=== PATIENT | male | born 1980 | race Caucasian/White ===

== ENCOUNTER 2016-11-27 19:52 | Emergency (ER) | payer OTHER ==
[~2016-11-27 19:52] MED LIST: ALL220TA PO; CYCL5TAB PO; PENI500T PO
[2016-11-27 19:55] VITALS: BP 155/108; PULSE 108; RESP 20; TEMP 99.2
[2016-11-27] MEDS ORDERED: IBUP400T20 PO (20:11)
[2016-11-27] MEDS ORDERED: TYLETAB34 PO (20:11)
[2016-11-27] MEDS ORDERED: METH750T PO (20:11)
[2016-11-27] MEDS ORDERED: ORPHENADRINE INJ 60 MG/2 ML AMP IM ONE (20:30)
[2016-11-27] MEDS ORDERED: methylPREDNISolone SOD SUCC 125 MG/2 ML VIAL IM ONE (20:30)
[2016-11-27] MEDS ORDERED: KETOROLAC TROMETHAMINE 60 MG/2 ML (IM) VIAL IM ONE (20:30)
--- NOTE | 2016-11-27 20:31 | PD ---
HPI Chief Complaint: Back/ Neck Pain or Injury Time Seen by Provider: 20:25 Travel History International Travel<30 days: No Contact w/Intl Traveler<30days: No Traveled to known affect area: No History of Present Illness HPI 36-year-old male presents to emergency department with a one-day history of low back pain that started after he bent down to pick some up. States that he does have some chronic back pain however it is controlled with ibuprofen and occasional muscle relaxers. States that he tried to take ibuprofen, use heat and ice, and massage therapy however, none of this has helped. States this pain is located in the lower left lumbar and sacroiliac region, moderate, achy with occasional sharp pain that exacerbates with movement. Denies radiation of pain. Denies fever, chills, loss of bowel or bladder function, history IV drug use, personal history of cancer, weakness. He follows his primary care physician, Dr. Kimble, regularly. PFSH Past Medical History Medical History: Denies Significant Hx Cerebrovascular Accident: No Diabetes: No Myocardial Infarction: No Tetanus Vaccination: > 5 Years Influenza Vaccination: No Past Surgical History Surgical History: No Previous Surgery Social History Alcohol Use: Yes (OCCASIONAL) Tobacco Use: Yes (2 CIGS DAILY) Substance Use: No Allergies-Medications (Allergen,Severity, Reaction): Coded Allergies: Sulfa (Sulfonamide Antibiotics) (Verified Allergy, Mild, 11/27/16) Reported Meds & Prescriptions Reported Meds & Active Scripts Active Medrol Dosepak (Methylprednisolone) 4 Mg Dspk 4 Mg PO DIRECTED Per Pharmacist direction Reported Tylenol-Codeine #3 (Acetaminophen-Codeine) 300-30 mg Tab 1 Tab PO Q4H PRN Methocarbamol 750 Mg Tab 750 Mg PO Q4H Ibuprofen 400 Mg Tab 400 Mg PO Q6H PRN Review of Systems Except as stated in HPI: all other systems reviewed are Neg Physical Exam Narrative GENERAL: Well-developed well-nourished SKIN: Focused skin assessment warm/dry. No areas of ecchymosis HEAD: Atraumatic. Normocephalic. NECK: Trachea midline. No JVD. CARDIOVASCULAR: Regular rate and rhythm. No murmur appreciated. RESPIRATORY: No accessory muscle use. Clear to auscultation. Breath sounds equal bilaterally. GASTROINTESTINAL: Abdomen soft, non-tender, nondistended. Hepatic and splenic margins not palpable. BACK: No CVA tenderness. No rash. No point tenderness on palpation of the spine. Mild tenderness to palpation of the lower left lumbar and sacroiliac region without step-off or crepitus. MUSCULOSKELETAL: No obvious deformities. No clubbing. No cyanosis. No edema. NEUROLOGICAL: Awake and alert. No obvious cranial nerve deficits. Motor grossly within normal limits. Normal speech. Grade 5 out of 5 strength lower extremities, neurovascularly intact PSYCHIATRIC: Appropriate mood and affect; insight and judgment normal. Data Data Last Documented VS Vital Signs Date Time Temp Pulse Resp B/P (MAP) Pulse Ox O2 Delivery O2 Flow Rate FiO2 11/27/16 19:55 99.2 108 20 155/108 (124) Orders Orders Ketorolac Inj (Toradol Inj) (11/27/16 20:30) Methylprednisolone So Succ Inj (Solumedr (11/27/16 20:30) Orphenadrine Inj (Norflex Inj) (11/27/16 20:30) Ed Discharge Order (11/27/16 20:25) MDM Medical Decision Making Medical Screen Exam Complete: Yes Emergency Medical Condition: Yes Differential Diagnosis Lower back muscle spasm versus sciatica versus strain Narrative Course 36-year-old male presents to emergency department with a one-day history of low back pain that started after he bent down to pick some up. States that he does have some chronic back pain however it is controlled with ibuprofen and occasional muscle relaxers. States that he tried to take ibuprofen, use heat and ice, and massage therapy however, none of this has helped. States this pain is moderate, achy with occasional sharp pain that exacerbates with movement. Denies radiation of pain. Denies fever, chills, loss of bowel or bladder function, history IV drug use, personal history of cancer, weakness. He follows his primary care physician, Dr. Kimble, regularly. Physical exam demonstrates tenderness to palpation of the left lower sacroiliac and surrounded musculature. No step-off, crepitus or paraspinous tenderness. Neurosensory intact. Grade 5 out of 5 strength Patient has a muscle spasm of the lower left back approximately a result of the twisting movement he described. Medrol Dosepak for home. Follow-up with his primary care physician tomorrow for further treatment and evaluation. Diagnosis Primary Impression: Muscle spasm Referrals: Primary Care Physician Additional Instructions: Perform light stretches of the lower back and legs, and alternate heat and ice packs. If you develop increased pain, weakness, fever, chills, or bowel or bladder issues, return to the ED for further treatment and evaluation. Follow up with your primary care physician in 2-3 days. Scripts Methylprednisolone Dosepak (Medrol Dosepak) 4 Mg Dspk 4 MG PO DIRECTED, #1 DSPK 0 Refills Per Pharmacist direction Prov: Ti Soto MD 11/27/16 Disposition: 01 DISCHARGE HOME Condition: Stable Josie Pandya Nov 27, 2016 20:31
[2016-11-27] MEDS ORDERED: MEDR4PAK PO (20:32)
== END 2016-11-27 20:57 | disposition home or self-care (01) ==
LOC: PHEFT 19:52
DX: M62.830 Muscle spasm of back (principal)
CPT/HCPCS: 96372; 99284; J1885; J2360; J2930

== ENCOUNTER 2017-01-19 14:31 | Emergency (ER) | payer OTHER ==
[~2017-01-19] VITALS: Ht 177.8 cm; Wt 93.0 kg
[~2017-01-19 14:31] MED LIST changes: -ALL220TA PO; -CYCL5TAB PO; +IBUP1TAB5 PO; +MEDR4PAK PO; +METH750T PO; -PENI500T PO; +TYLETAB34 PO
[2017-01-19 14:41] VITALS: BP 136/90; PULSE 96; RESP 16; TEMP 98.4; O2SAT 97
[2017-01-19] MEDS ORDERED: METH750T PO (14:51)
[2017-01-19] MEDS ORDERED: LIDOCAINE 1%/EPINEPHrine 1:100,000 SOLN 20 ML VIAL INFIL ONE (15:00)
[2017-01-19] MEDS ORDERED: TETANUS/DIPHTHERIA TOXOID ADULT 0.5 ML VIAL IM ONE (15:00)
--- NOTE | 2017-01-19 15:00 | PD ---
HPI Chief Complaint: Bite or Sting Time Seen by Provider: 14:48 Travel History International Travel<30 days: No Contact w/Intl Traveler<30days: No Traveled to known affect area: No History of Present Illness HPI Patient comes in for evaluation of dog bite to his chin that occurred around 12: 30 today. 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 Patient states the dog bite him on the chin. Patient states that he had a mcdaniels and was uncertain whether the dog was was just pulling his mcdaniels or actually set him on the chin. Patient states he was trimmed off the mcdaniels and saw the cuts. Patient clean wound with rubbing alcohol, peroxide, and [id number] cleanser. Patient reports tetanus shot is not up-to-date. Patient reports mild soreness around the sites of the bite. Denies anything making symptoms better or worse. Reports the dog's vaccinations are up-to-date. PFSH Past Medical History Medical History: Denies Significant Hx Cerebrovascular Accident: No Diabetes: No Diminished Hearing: No Myocardial Infarction: No Social History Alcohol Use: Yes (OCCASIONAL) Tobacco Use: Yes (2 CIGS DAILY) Substance Use: No Allergies-Medications (Allergen,Severity, Reaction): Coded Allergies: Sulfa (Sulfonamide Antibiotics) (Verified Allergy, Mild, 01/19/17) Reported Meds & Prescriptions Reported Meds & Active Scripts Active Augmentin (Amoxicillin-Clavulanate) 875-125 Mg Tab 1 Tab PO BID 10 Days Reported Methocarbamol 750 Mg Tab 750 Mg PO Q4H Review of Systems Except as stated in HPI: all other systems reviewed are Neg Physical Exam Narrative GENERAL: Well-developed, overly nourished, in no acute distress, and non-ill appearing. SKIN: 2 dog bites noted on chin. One is superficial nonrepairable. The other is approximately 1-1/2 cm and minimally gaping. HEAD: Atraumatic. Normocephalic. EYES: Pupils equal and round. EOMI. No scleral icterus. No injection or drainage. ENT: No nasal bleeding or discharge. Mucous membranes pink and moist. NECK: Trachea midline. Supple. No nuclear rigidity. RESPIRATORY: No accessory muscle use. No respiratory distress. MUSCULOSKELETAL: No obvious deformities. No clubbing. No cyanosis. No edema. Full range of motion. NEUROLOGICAL: Awake and alert. No obvious cranial nerve deficits. Motor grossly within normal limits. Normal speech. PSYCHIATRIC: Appropriate mood and affect; insight and judgment normal. Data Data Last Documented VS Vital Signs Date Time Temp Pulse Resp B/P (MAP) Pulse Ox O2 Delivery O2 Flow Rate FiO2 01/19/17 14:41 98.4 96 16 136/90 (105) 97 Orders Orders Lidocai-Epi 1%-1:100,000 Inj (Xylocaine- (01/19/17 15:00) Tetanus/Diphtheria Tox Adult (Tetanus/Di (01/19/17 15:00) Lidocai-Epi 2%-1:100,000 Inj (Xylocaine- (01/19/17 15:15) Ed Discharge Order (01/19/17 16:06) [facility] Medical Decision Making Medical Screen Exam Complete: Yes Emergency Medical Condition: Yes Differential Diagnosis Dog bite, laceration, abrasion Narrative Course The patient suffered animal bite wound. The animal is domesticated, vaccinations are reported to be UTD and the animal can be watched. There is no evidence of deep tissue involvement and/or local tendon involvement. There was no evidence to suggest foreign bodies. Visual and tactile exams were unremarkable. There was no evidence of neurovascular injury as well. The patients wounds were irrigated copiously, cleaned and repaired. Rabies prophylaxis was discussed with the patient and exposure appears low risk and not indicated. The patient was given signs and symptom warnings for infection, such as increasing pain, pain with movement of involved extremity,redness, swelling, associated heat, pus or fever. The patient was given antibiotics to cover mouth bonifacio and instructions for timely follow up for wound recheck. The patient agreed with plan of care. Animal control was contacted per hospital protocol. Patient in no obvious distress upon re-evaluation. Patient was asked if they wanted to speak to my attending, which the patient did not wish to do at this time. Any questions/concerns in reference to patient diagnosis/condition discussed and clarified prior to patient's discharge. Reinforced sheer importance of close follow up with patient's primary physician or primary care clinic. Instructed patient to return to ED immediately, if symptoms return/ worsen. Patient showed understanding of above instructions. Further instructions and recommendations were detailed in discharge paperwork. Patient ambulated without difficulty out of ED at discharge. Procedures Procedure Narrative LACERATION REPAIR LOCATION: Chin LENGTH: Approximately 1.5 cm in total length NUMBER OF STITCHES/WHITLYE: 3 simple interrupted REPAIR: Verbal consent was obtained. The area of the laceration was cleaned and prepped. The laceration was infiltrated with a cane with epi. The wound was copiously irrigated and explored without evidence of foreign body, bony involvement, ligament injury, tendon injury, or neurovascular injury. The wound was closed using 5-0 Vicryl. This was a single layer repair. The patient was advised to keep the affected area as clean and dry as possible using soap and water. There were no complications. Patient tolerated the procedure well. Diagnosis Primary Impression: Dog bite of chin Qualified Codes: S01.85XA - Open bite of other part of head, initial encounter ; W54.0XXA - Bitten by dog, initial encounter Referrals: [facility] Patient Instructions: Animal Bite (ED), General Instructions Additional Instructions: Follow-up with your primary care physician in 3-5 days for reevaluation. Take all medication as prescribed. Keep wound dry and clean as possible using soap and water. Use Neosporin to promote healing. Return to the emergency department if symptoms get worse. Med/Other Pt SpecificInfo: Prescription(s) given Scripts Amoxicillin-Clavulanate (Augmentin) 875-125 Mg Tab 1 TAB PO BID for Infection for 10 Days, #20 TAB 0 Refills Prov: Brunilda Yepez DO 01/19/17 Disposition: 01 DISCHARGE HOME Condition: Stable Fran Garcia Jan 19, 2017 14:59
[2017-01-19] MEDS ORDERED: LIDOCAINE 2%/EPINEPHrine 1:100,000 20ML MDV NERV BLOCK ONE (15:15)
[2017-01-19] MEDS ORDERED: AUGM875T3 PO (15:57)
== END 2017-01-19 16:25 | disposition home or self-care (01) ==
LOC: PHEFT 14:31
DX: S01.85XA Open bite of other part of head, initial encounter (principal); W54.0XXA Bitten by dog, initial encounter; Z23 Encounter for immunization
CPT/HCPCS: 12011; 90471; 90714